=== PATIENT | female | born 1955 | race Caucasian/White ===

== ENCOUNTER 2019-04-27 11:18 | Outpatient (CLI) | payer MEDICARE, BC, SELFPAY ==
--- NOTE | 2019-04-27 11:22 | DI.RAD_ITS ---
SYMPTOMS/DIAGNOSIS: RIGHT KNEE PAIN RIGHT KNEE: The joint spaces are well maintained. There is mild periarticular spurring throughout. No joint effusion is seen. IMPRESSION: Mild degenerative changes.
== END 2019-04-27 11:38 ==
PROVIDERS: Referring Provider Emergency Medicine; Visit Provider Orthopaedic Surgery
DX: M25.561 Pain in right knee (principal); M70.51 Other bursitis of knee, right knee
CPT/HCPCS: 99202; 99203; 73560

== ENCOUNTER 2019-06-21 02:37 | Emergency (ER) | payer MEDICARE, BC, SELFPAY ==
[2019-06-21 02:39] VITALS: BP 126/93; PULSE 98; RESP 18; TEMP 36.7; O2SAT 98
--- NOTE | 2019-06-21 02:46 | ED.GENADUL_ITS ---
Discharge Plan Disposition Patient Disposition: HOME Condition: Good Discharge Details Chief Complaint: RashLesion Clinical Impression: Rash and nonspecific skin eruption, Swelling of body region Primary Care Provider: Aldo Falcon ED Provider: Sam Gunderson [place] Meds and New Rx's Prescriptions: Continued estradiol-norethindrone acet [Activella] 1-0.5 mg Tablet 1 tab PO DAILY RF: 0 Discharge Instructions Additional Instructions: Please keep your appointment with dermatology this morning. You may take another dose of Benadryl orally after 930 this morning if needed. You may take ibuprofen for discomfort after 1030 this morning if needed. You will need outpatient imaging of your kidney to evaluate whether lesions seen on CAT scan. Discuss with primary care when you see him next week. Return to ED for increasing pain, fever, difficulty breathing or swallowing, other concerns. Referrals: [facility] [Provider Group] Aldo Falcon DO [Primary Care Provider] - Medical Decision Making Patient presenting with left shoulder/scapula erythema, swelling, discomfort and itch. While it does not cross the midline there is no definitive vesicular lesions nor does it sound like there ever was that patient or saw. There is significant swelling and edema involving the posterior shoulder scapular region. There is no change in range of motion or pain with range of motion of the neck or shoulder. There is no fever. Differential includes shingles, dermatitis, cellulitis. Biggest unexplainable finding is the amount of swelling and edema present. There is no crepitus. She does not look toxic. She has appointment to see dermatology later this morning. For tonight we will place an IV and check CBC and chemistries. We will try IV Benadryl and if no relief IV morphine. Will obtain CT scan of the soft tissues to evaluate for any evidence of infection. Patient's laboratory studies are unremarkable. Her white count is normal with no shift. Chemistries fine. CT scan suggestive of soft tissue infiltration involving trapezius and subcutaneous tissue. Consideration for myositis versus cellulitis. CK added but with no significant muscle pain or decrease in range of motion doubt myositis. CK came back normal. With no fever or white count patient not feeling ill doubt that this is cellulitis. It may all be localized third spacing due to dermatitis. She is better after IV Benadryl and IV Toradol. We will hold off starting antibiotics or steroids as she has appointment to see dermatology at [facility] in 6 hours. Patient was made aware of need for follow-up imaging of kidney due to question of low cyst versus mass. She has an appointment to see primary care next week. Lab Data Lab results reviewed: Yes I reviewed the patient's lab results. HPI General Mode of arrival: ambulatory . Date/Time Provider Initiated Documentation: 06/21/19 02:45 . Limitations to Documentation: no limitations . Information obtained by: patient and RN notes reviewed . HPI Narrative: Patient presents to ED with left shoulder/back redness, swelling, burning itch that started about a week and a half ago and has become progressively worse. Patient reports that when it first started it seemed to be a small bump in the left scapular region. Over time it became red and itchy. She has been using Benadryl cream and oral Benadryl to help with the itch. There has been a few more bumps but no real vesicles. It has now caused swelling in the shoulder, scapular region. Erythema has spread to the anterior chest and a little up the neck. Benadryl is no longer helping with the burning itch. She denies having fever or chills. She denies pain with range of motion of the shoulder or neck. She actually swam with no difficulty during the day. She has no shortness of breath. She has had no previous reaction like this. She has an appointment to see dermatology at [facility] at 11 AM in the morning. However, because of the discomfort she has been unable to sleep no longer stand the pain and is come in for evaluation. Related Data Home Medications Medication Instructions Recorded Confirmed estradiol-norethindrone acet 1 tab PO DAILY 06/21/19 06/21/19 [Activella] Allergies Allergy/AdvReac Type Severity Reaction Status Date / Time Penicillins Allergy Intermediate Unverified 06/21/19 02:44 General Stated Complaint: RashLesion CAROLE: 3 Review of Systems Review of Systems Narrative: As documented in HPI otherwise negative as below. Const: no fever, chills, weakness Resp: no cough, SOB, pleuritic pain CV: no CP, diaphoresis, edema, syncope GI: no abdominal pain, nausea, vomiting, diarrhea Neuro: no headache, numbness, focal weakness, confusion PFSH Social History Smoking/Tobacco Use Status: Never Alcohol Intake: current Alcohol Intake frequency: 0-2 drinks per day Alcohol type: wine Drug use: Never Substance use type: does not use Do you feel safe at home: Yes Do you feel safe in your relationship?: Yes Exam Narrative Exam Narrative: Vitals: Afebrile. Mild elevation of heart rate and blood pressure. Normal pulse oximetry. Const: WDWN female in NAD. HEENT: NC/AT. Normal facial exam. Eyes: Normal conjunctiva and sclera. Neck: Supple. Trachea midline. Normal ROM. Lungs: Normal respiratory effort. Back: Significant edema of the soft tissue involving the posterior shoulder and scapular area. Neuro: A+O x 3. CN grossly in tact. Good strength and no focal deficit. Ext: No C/C/E. Normal ROM of LUE. Skin: Warm and dry. No crepitus. Erythema involving the left scapular, shoulder, anterior chest and neck area. Does not cross midline. No obvious vesicular lesions. Few areas of raised bumps but not really rash like. Some warmth. Some pain with palpation. Course Vital Signs Vital signs: Vital Signs Temperature 98.1 F 06/21/19 02:39 Pulse 98 H 06/21/19 02:39 Respiratory Rate 18 06/21/19 02:39 Blood Pressure 126/93 H 06/21/19 02:39 Pulse Oximetry 98 06/21/19 02:39 Temperature 98.1 F 06/21/19 02:39 Temperature Source Tympanic 06/21/19 02:39 Pulse 98 H 06/21/19 02:39 Respiratory Rate 18 06/21/19 02:39 Blood Pressure 126/93 H 06/21/19 02:39 Pulse Oximetry 98 06/21/19 02:39 Pain Level 7 06/21/19 02:39
--- NOTE | 2019-06-21 03:09 | DI.CT_ITS ---
EXAM: CT CHEST W CLINICAL HISTORY: swelling, redness, pain left shoulder/scapular. TECHNIQUE: The exam was performed according to the usual protocol. COMPARISON: No exams were available for comparison FINDINGS: There is infiltration of the fat and musculature seen adjacent to the left trapezius extending from a dany the level of the shoulder inferiorly to the level of the mid scapula. Findings are consistent w ith myositis and cellulitis. There is no drainable abscess. No bony destruction is seen. The lungs are clear. The heart size is normal. There is a small lesion at the upper pole of the lef t kidney which may represent a small mass versus hyperdense cyst. A follow-up exam could be consider ed. An incidental liver cyst is seen. The bones are unremarkable. IMPRESSION: Infiltration of the fat and musculature of the left trapezial region consistent with myositis and ce llulitis. No drainable abscess.
[2019-06-21] MEDS: diphenhydrAMINE 50 MG/ML VIAL 25 MG IVP (03:30)
[2019-06-21] MEDS: Omnipaque 350 MG/ML 100 ML BTL IJ (03:36)
[2019-06-21 03:49] LABS: Anion Gap 10.7 mmol/L (3-11); BUN 10 mg/dL (7-18); CO2 25.3 mmol/L (21.0-32.0); CREATININE 0.77 mg/dL (0.55-1.02); Calcium 8.5 mg/dL (8.5-10.1); Chloride 106 mmol/L (98-107); Glucose 100 mg/dL (70-100); Potassium 3.6 mmol/L (3.5-5.1); Sodium 142 mmol/L (136-145)
[2019-06-21 03:54] LABS: Abs Immature Grans 0.02 k/cumm (0.0-0.09); Absolute Basophil Count 0.02 k/cumm (0.0-0.2); Absolute Eosinophil Count 1.54 k/cumm (0.0-0.7); Absolute Lymphocyte Count 2.93 k/cumm (1.2-3.4); Absolute Monocyte Count 0.48 k/cumm (0.11-0.7); Absolute Neutrophil Count 3.34 k/cumm (1.2-6.7); Basophils % 0.2; Eosinophils % 18.5; HCT 44.6 % (36.0-46.0); HGB 15.2 g/dL (12.0-15.5); Immature Grans % 0.2; Lymphocytes % 35.2; Mean Corp. HGB Concentration 34.1 g/dL (32.0-36.0); Mean Corpuscular Hemoglobin 30.6 pg (27.0-33.0); Mean Corpuscular Volume 89.9 fL (80-95); Mean Platelet Volume 9.8 fL (8.0-11.0); Monocytes % 5.8; Neutrophils % 40.1; Platelet Count 301 x1000/uL (130-400); RBC 4.96 m/cumm (4.00-5.20); RBC Distribution Width 14.4 % (11.7-14.6); White Blood Cell Count 8.33 k/cumm (4.4-10.8)
--- NOTE | 2019-06-21 04:09 | DI.VRAD_ITS ---
PROCEDURE INFORMATION: Exam: CT Chest With Contrast Exam date and time: 06/21/2019 3:11 AM Clinical history: 64 years old, female; Other: Swelling, redness, pain left shoulder/scapular; Patient HX: Swelling, redness, pain in left shoulder/scapular region soft tissue TECHNIQUE: Imaging protocol: Computed tomography of the chest with intravenous contrast. Radiation optimization: All CT scans at this facility use at least one of these dose optimization techniques: automated exposure control; mA and/or kV adjustment per patient size (includes targeted exams where dose is matched to clinical indication); or iterative reconstruction. Contrast material: OMNIPAQUE 350; Contrast volume: 70 ml; Contrast route: IV; COMPARISON: No relevant prior studies available. FINDINGS: Lungs: Unremarkable. No consolidation. No masses. Pleural space: Unremarkable. No pneumothorax. No pleural effusion. Heart: Unremarkable. No cardiomegaly. No pericardial effusion. Aorta: Unremarkable. No aortic aneurysm. Lymph nodes: Unremarkable. No enlarged lymph nodes. Liver: 10 mm low-density hepatic lesion possibly indicating cyst. Hepatic steatosis. Kidneys and ureters: 14 mm increased density lesion in the right renal upper pole could indicate high density cyst versus soft tissue mass. Bones/joints: Unremarkable. No acute fracture. Soft tissues: Prominent infiltration of the left and posterior inferior cervical/upper thoracic soft tissue, predominantly involving the trapezius and adjacent fat and could indicate a myositis or cellulitis. IMPRESSION: 1. Prominent infiltration of the left and posterior inferior cervical/upper thoracic soft tissue, predominantly involving the trapezius and adjacent fat and could indicate a myositis or cellulitis. 2. 14 mm increased density lesion in the right renal upper pole could indicate high density cyst versus soft tissue mass. Dictated and Authenticated by: Neri Brown MD. Ordering:PAVEL Vargas MD
[2019-06-21 04:36] LABS: Diff Comment Agrees w/ Instrument; RBC Morphology Normal
[2019-06-21 04:39] LABS: Creatine Kinase 111 U/L (26-192)
[2019-06-21] MEDS: Ketorolac 15 MG/ML VIAL IVP (04:44)
[2019-06-21 05:05] VITALS: BP 126/82; PULSE 82; RESP 14; O2SAT 98
== END 2019-06-21 05:04 | disposition home or self-care (01) ==
LOC: ER 05:11
PROVIDERS: Emergency Provider Emergency Medicine; PCP Emergency Medicine
DX: R21 Rash and other nonspecific skin eruption (principal); R22.32 Localized swelling, mass and lump, left upper limb
CPT/HCPCS: 36415; 80048; 82550; 96361; 96374; 96375; 99285; 71260; 85025; 99284; J1200; J1885; J3490

== ENCOUNTER 2019-07-25 09:54 | Outpatient (REF) | payer MEDICARE, BC, SELFPAY ==
--- NOTE | 2019-07-25 09:30 | PAPFT_PTH ---
PATIENT: Lisseth Neri LOC: [facility] U#:[id number] AGE/SX: 64/F ROOM: RE07/25/[address]: CURT Morris : 1955 BED: DIS: 07/25/2019 SPEC #: [id number] RECD: 07/25/19 12:55 STATUS: RAHEL REQ #: [id number] RICHARD: 07/25/19 09:[address]: Zayda Cuadra DEPT: [facility] Cytology RECD BY: Anca Cruz ENTERED: 07/25/19 12:55 SP TYPE: PAPFT OT DR: Aldo Falcon, Tissues: 1 - CX/ENDOCX FOR PAP SMEARS Procedures: PAP THIN PREP/UVM Screening Comments: [id number]
== END 2019-07-25 10:14 ==
LOC: LBN 09:54
PROVIDERS: PCP Emergency Medicine; Visit Provider Nurse Practitioner Family
DX: Z12.4 Encounter for screening for malignant neoplasm of cervix (principal); Z11.51 Encounter for screening for human papillomavirus (HPV)
CPT/HCPCS: 88142; 87624

== ENCOUNTER 2019-08-12 01:38 | Outpatient (CLI) | payer MEDICARE, BC, SELFPAY ==
--- NOTE | 2019-08-12 11:20 | DI.MAMMO_ITS ---
EXAM: MG MAMMO SCREENING CLINICAL HISTORY: screening TECHNIQUE: Bilateral full field digital CC and MLO mammographic images were obtained with 3D tomosyn thesis and utilizing computer aided detection (CAD). COMPARISON: Available for comparison. FINDINGS: Masses/Architectural Distortion: None seen. Microcalcifications: No suspicious pleomorphic-type are seen. Skin Thickening/Nipple Retraction: None. IMPRESSION: 1. No significant interval change with no specific features of malignancy noted. 2. Unless there is more urgent need, screening mammography is recommended, as per [employer] guidelines. ACR BI-RAD Category- 1 Negative Breast Density - Category D - Extremely dense The mammogram demonstrates the patient's breast tissue is dense. Dense breast tissue is very common a nd is not abnormal but dense breast tissue can make it harder to find cancer on a mammogram. Also, de nse breast tissue may increase their breast cancer risk. This information about the result of the [facility] mogram report was provided to the patient to raise their awareness. Use this report when you speak wi th the patient about their risks for breast cancer, which includes their family history. At that time , you may recommend for more screening tests (Ultrasound or MRI) as they might be useful based on the ir risk. A negative radiographic report should not delay biopsy if a dominant or clinically suspicious mass is present. Up to ten percent of cancers are not identified on mammography. A negative report may reinforce clinical impression. Adenosis and dense breasts may obscure an underlying neoplasm. False positive reports average 6 to 10%. Patient will receive a letter notifying them of these results.
== END 2019-08-12 01:58 ==
PROVIDERS: PCP Emergency Medicine; Visit Provider Nurse Practitioner Family
DX: Z12.31 Encounter for screening mammogram for malignant neoplasm of breast (principal)
CPT/HCPCS: 77063; 77067

== ENCOUNTER 2020-04-09 09:48 | Outpatient (CLI) | payer MEDICARE, BC, SELFPAY ==
[2020-04-11 17:45] LABS: SARS-CoV-2 RNA Undetected (Undetected); SARS-CoV-2 Specimen Source Nasopharynx
== END 2020-04-09 10:08 ==
PROVIDERS: PCP Emergency Medicine; Visit Provider Emergency Medicine
DX: Z20.828 Contact with and (suspected) exposure to other viral communicable diseases (principal)
CPT/HCPCS: U0003

== ENCOUNTER 2020-08-27 00:29 | Outpatient (CLI) | payer MEDICARE, BC, SELFPAY ==
--- NOTE | 2020-08-27 10:30 | DI.MAMMO_ITS ---
EXAM: MG MAMMO SCREENING CLINICAL HISTORY: screening. TECHNIQUE: Bilateral full field digital CC and MLO mammographic images were obtained with 3D tomosyn thesis and utilizing computer aided detection (CAD). COMPARISON: Prior mammograms dating back to 2016, the most recent being July 2019. FINDINGS: The fibroglandular tissue is dense, this decreasing the sensitivity mammogram for finding hidden unde rlying lesions. There are no CAD designations. There are no obvious spiculated masses nor malignant appearing microcalcification groups. There is n o significant architectural distortion nor skin thickening-retraction. IMPRESSION: Dense bilateral fibroglandular tissue. No obvious radiographic evidence of malignancy. BI-RADS Category 1 - Negative Breast Density - Category C - Heterogeneously dense Breast density Category C or D implies that the patient has dense breast tissue. Dense breast tissue can make it harder to find cancer on a mammogram. Dense breast tissue is also associated with an incr eased risk of breast cancer. This information about the result of the mammogram report was provided to the patient to raise their awareness. Use this report when you speak with the patient about their risks for breast cancer, which includes their family history. At that time, you may recommend additional screening tests (Ultrasoun d or MRI) as these tests may add significant information. A negative radiographic report should not delay biopsy if a dominant or clinically suspicious mass is present. Up to ten percent of cancers are not identified on mammography. A negative report may reinforce clinical impression. Adenosis and dense breasts may obscure an underlying neoplasm. False positive reports average 6 to 10%. Patient will receive a letter notifying them of these results.
== END 2020-08-27 00:49 ==
PROVIDERS: PCP Emergency Medicine; Visit Provider Nurse Practitioner Family
DX: Z12.31 Encounter for screening mammogram for malignant neoplasm of breast (principal)
CPT/HCPCS: 77063; 77067

== ENCOUNTER 2021-08-22 19:55 | Outpatient (REF) | payer MEDICARE, BC, SELFPAY ==
[2021-08-22 18:44] LABS: Calculated LDL 49 mg/dL (<100); Cholesterol 164 mg/dL (<200); HDL Cholesterol 108 mg/dL (40-60); Triglyceride 36 mg/dL (<150)
== END 2021-08-22 19:56 | disposition home or self-care (01) ==
LOC: LBN 19:55
PROVIDERS: PCP Emergency Medicine; Visit Provider Emergency Medicine
DX: N95.1 Menopausal and female climacteric states (principal); D04.9 Carcinoma in situ of skin, unspecified
CPT/HCPCS: 80061

== ENCOUNTER → 2021-09-17 00:56 | Outpatient (CLI) | payer MEDICARE, BC, SELFPAY ==
--- NOTE | 2021-09-17 12:23 | DI.MAMMO_ITS ---
Exam(s) MAMMO SCREENING EXAM: MAMMO SCREENING CLINICAL HISTORY: screening TECHNIQUE: Bilateral full field digital CC and MLO mammographic images were obtained with 3D tomosyn thesis and utilizing computer aided detection (CAD). COMPARISON: Available for comparison. FINDINGS: Masses/Architectural Distortion: None seen. Microcalcifications: No suspicious pleomorphic-type are seen. Skin Thickening/Nipple Retraction: None. IMPRESSION: 1. No significant interval change with no specific features of malignancy noted. 2. Unless there is more urgent need, screening mammography is recommended, as per [employer] guidelines. BI-RADS Category 1 - Negative Breast Density - Category C - Heterogeneously dense Breast density category C or D implies that the patient has dense breast tissue. Dense breast tissue is very common and is not abnormal but dense breast tissue can make it harder to find cancer on a ma mmogram. Also, dense breast tissue may increase their breast cancer risk. This information about the result of the mammogram report was provided to the patient to raise their awareness. Use this report when you speak with the patient about their risks for breast cancer, which includes their family hist ory. At that time, you may recommend for more screening tests (Ultrasound or MRI) as they might be us eful based on their risk. A negative radiographic report should not delay biopsy if a dominant or clinically suspicious mass is present. Up to ten percent of cancers are not identified on mammography. A negative report may reinforce clinical impression. Adenosis and dense breasts may obscure an underlying neoplasm. False positive reports average 6 to 10%. Patient will receive a letter notifying them of these results.
== END ==
PROVIDERS: PCP Emergency Medicine; Visit Provider Nurse Practitioner Family
DX: Z12.31 Encounter for screening mammogram for malignant neoplasm of breast (principal)
CPT/HCPCS: 77063; 77067

== ENCOUNTER → 2022-03-13 09:39 | Outpatient (BNVA) | payer MEDICARE, BC, SELFPAY | PROVIDERS: PCP Family Medicine; Referring Provider Family Medicine; Visit Provider Surgery | DX: N63.10 Unspecified lump in the right breast, unspecified quadrant (principal) | CPT/HCPCS: 99202; 99213 ==

== ENCOUNTER → 2022-03-20 01:34 | Outpatient (CLI) | payer MEDICARE, BC, SELFPAY ==
--- NOTE | 2022-03-20 09:10 | DI.MAMMO_ITS ---
Exam(s) MG MAMMO DIAGNOSTIC UNI US BREAST RT COMPLETE EXAM: MG MAMMO DIAGNOSTIC UNI -RIGHT AND COMPLETE RIGHT BREAST ULTRASOUND CLINICAL HISTORY: rapid onset R breast redness, palpable rt mass,n63.10. TECHNIQUE: Unilateral CC AND MLO MAMMOGRAPHIC images were obtained with 3D tomosynthesis technique a nd utilizing computer aided detection (CAD). COMPLETE right breast ultrasound was performed including all 4 quadrants as well as the retroareolar region and right axilla. COMPARISON: Prior mammograms were reviewed, the most recent being SEPTEMBER 2021. This patient recently experience unilateral right breast redness while in [place]. This has subse quent completely resolved. She presently does not feel a lump. FINDINGS: DIAGNOSTIC RIGHT BREAST MAMMOGRAM: Fibroglandular tissue is again noted dense. No new masses nor mal ignant-appearing microcalcification groups in the right breast. No new architectural distortion or s kin thickening-retraction. COMPLETE RIGHT BREAST ULTRASOUND: There is a solitary finding which is at the 3 o'clock position. This has the appearance of a 4 ale meter wider than taller microcyst. No solid lesions nor worrisome areas of decreased through transmi ssion all 4 quadrants. No significant focal findings in the retroareolar region no. No dilated duct s. No ipsilateral axillary adenopathy. IMPRESSION: No radiographic evidence of malignancy in the right breast. Solitary 4 millimeter microcysts at 3 o'clock position seen on ultrasound. Appropriate follow-up is repeat breast imaging if her previous symptoms return. Findings and recommendations were discussed by myself with the patient today. The patient was informed of the findings and follow-up recommendations prior to leaving the [facility] today. BI-RADS Category 2 - Benign Findings Breast Density - Category C - Heterogeneously dense Breast density Category C or D implies that the patient has dense breast tissue. Dense breast tissue can make it harder to find cancer on a mammogram. Dense breast tissue is also associated with an incr eased risk of breast cancer. This information about the result of the mammogram report was provided to the patient to raise their awareness. Use this report when you speak with the patient about their risks for breast cancer, which includes their family history. At that time, you may recommend additional screening tests (Ultrasoun d or MRI) as these tests may add significant information. A negative radiographic report should not delay biopsy if a dominant or clinically suspicious mass is present. Up to ten percent of cancers are not identified on mammography. A negative report may reinforce clinical impression. Adenosis and dense breasts may obscure an underlying neoplasm. False positive reports average 6 to 10%. Patient will receive a letter notifying them of these results.
== END ==
PROVIDERS: PCP Family Medicine; Visit Provider Obstetrics & Gynecology Gynecology
DX: N63.10 Unspecified lump in the right breast, unspecified quadrant (principal); R92.8 Other abnormal and inconclusive findings on diagnostic imaging of breast; N60.01 Solitary cyst of right breast; R92.2 Inconclusive mammogram
CPT/HCPCS: 76642; 77061; 77065; G0279

== ENCOUNTER → 2023-09-02 02:30 | Outpatient (CLI) | payer MEDICARE, BC, SELFPAY ==
--- NOTE | 2023-09-02 15:15 | DI.MAMMO_ITS ---
Exam(s) MAMMO SCREENING EXAM: MAMMO SCREENING CLINICAL HISTORY: screening. TECHNIQUE: Bilateral full field digital CC and MLO mammographic images were obtained with 3D tomosyn thesis and utilizing computer aided detection (CAD). COMPARISON: Prior mammograms were reviewed. Prior ultrasound March 2022 also reviewed. FINDINGS: Fibroglandular tissue pattern is again noted be moderately dense, this somewhat decreasing the sensit ivity of the mammogram for finding hidden underlying lesions. There are no obvious new spiculated masses nor malignant appearing microcalcification groups. There is no significant architectural distortion nor skin thickening-retraction. IMPRESSION: No radiographic evidence of malignancy. BI-RADS Category 1 - Negative Breast Density - Category C - Heterogeneously dense Breast density Category C or D implies that the patient has dense breast tissue. Dense breast tissue can make it harder to find cancer on a mammogram. Dense breast tissue is also associated with an incr eased risk of breast cancer. This information about the result of the mammogram report was provided to the patient to raise their awareness. Use this report when you speak with the patient about their risks for breast cancer, which includes their family history. At that time, you may recommend additional screening tests (Ultrasoun d or MRI) as these tests may add significant information. A negative radiographic report should not delay biopsy if a dominant or clinically suspicious mass is present. Up to ten percent of cancers are not identified on mammography. A negative report may reinforce clinical impression. Adenosis and dense breasts may obscure an underlying neoplasm. False positive reports average 6 to 10%. Patient will receive a letter notifying them of these results.
== END ==
PROVIDERS: PCP Family Medicine; Visit Provider Obstetrics & Gynecology
DX: Z12.31 Encounter for screening mammogram for malignant neoplasm of breast (principal)
CPT/HCPCS: 77063; 77067

== ENCOUNTER 2024-10-13 02:49 | Outpatient (CLI) | payer MEDICARE, BC, SELFPAY ==
--- NOTE | 2024-10-13 07:30 | DI.DEXA_ITS ---
Exam(s) XR DEXA BONE DENSITY W/WO SUDEEP EXAM: XR DEXA BONE DENSITY W/WO SUDEEP CLINICAL HISTORY: Screening,menopausal disorder,n95.9 TECHNIQUE: COMPARISON: No exams were available for comparison FINDINGS: Lateral Spine Image: Unremarkable. No compression deformities identified. Left hip: Total T-Score: -0.4 Total Z-Score: 1.2 T- and Z-scores: Within normal limits. Lumbar Spine: Total T-Score: -0.7 Total Z-Score: 1.5 T- and Z-scores: Within normal limits. IMPRESSION: No evidence of osteoporosis.
--- NOTE | 2024-10-13 07:30 | DI.MAMMO_ITS ---
Exam(s) MAMMO SCREENING EXAM: MAMMO SCREENING CLINICAL HISTORY: screening,z12.39 TECHNIQUE: Bilateral full field digital CC and MLO mammographic images were obtained with 3D tomosyn thesis and utilizing computer aided detection (CAD). COMPARISON: Available for comparison. FINDINGS: Masses/Architectural Distortion: None seen. Microcalcifications: No suspicious pleomorphic-type are seen. Skin Thickening/Nipple Retraction: None. IMPRESSION: 1. No significant interval change with no specific features of malignancy noted. 2. Unless there is more urgent need, screening mammography is recommended, as per [employer] guidelines. BI-RADS Category 1 - Negative Breast Density - Category C - Heterogeneously dense Breast density category C or D implies that the patient has dense breast tissue. Dense breast tissue is very common and is not abnormal but dense breast tissue can make it harder to find cancer on a ma mmogram. Also, dense breast tissue may increase their breast cancer risk. This information about the result of the mammogram report was provided to the patient to raise their awareness. Use this report when you speak with the patient about their risks for breast cancer, which includes their family hist ory. At that time, you may recommend for more screening tests (Ultrasound or MRI) as they might be us eful based on their risk. A negative radiographic report should not delay biopsy if a dominant or clinically suspicious mass is present. Up to ten percent of cancers are not identified on mammography. A negative report may reinforce clinical impression. Adenosis and dense breasts may obscure an underlying neoplasm. False positive reports average 6 to 10%. Patient will receive a letter notifying them of these results.
== END 2024-10-13 03:09 ==
LOC: DI 02:49
PROVIDERS: PCP Family Medicine; Visit Provider Family Medicine
DX: Z12.31 Encounter for screening mammogram for malignant neoplasm of breast (principal); N95.9 Unspecified menopausal and perimenopausal disorder; Z13.820 Encounter for screening for osteoporosis
CPT/HCPCS: 77063; 77067; 77080

== ENCOUNTER → 2024-11-03 10:03 | Outpatient (BNVA) | payer MEDICARE, BC, SELFPAY | PROVIDERS: PCP Family Medicine; Referring Provider Family Medicine; Visit Provider Physical Therapy Assistant | DX: Z12.11 Encounter for screening for malignant neoplasm of colon (principal); Z86.0100 Personal history of colon polyps, unspecified ==

== ENCOUNTER 2024-11-22 09:42 | Day surgery (SDC) | payer MEDICARE, BC, SELFPAY ==
[2024-11-22 10:34] VITALS: BP 118/74; PULSE 75; RESP 18; TEMP 36.6; O2SAT 100
[2024-11-22] MEDS: Lactated Ringers 1,000 ML 80 ML IV (11:00)
--- NOTE | 2024-11-22 12:23 | W.ANESPRE ---
General Info Date of Service Date Performed: 11/22/24 Height: 5 ft 5 in Weight: 57.6 kg Body Mass Index (BMI): 21.1 Surgical Procedure: Operation Date: 11/22/24 11:05 Proposed Procedure Side Surgeon vilma Randle MD Meds Allergies and Home Medications Allergies Allergy/AdvReac Type Severity Reaction Status Date / Time Penicillins AdvReac Intermediate Rash Verified 11/22/24 10:36 Home Medication ?Medication ?Instructions ?Recorded cholecalciferol (vitamin D3) 10 10 mcg PO DAILY 09/10/22 mcg (400 unit) capsule cyanocobalamin (vitamin B-12) 1,000 mcg PO DAILY 09/26/24 1,000 mcg capsule estradiol-norethindrone acet 1 1 tab PO DAILY #84 tabs 09/26/24 mg-0.5 mg tablet (Activella) bisacodyl 5 mg tablet,delayed 5 mg PO ONCE #4 tabs 11/03/24 release (Dulcolax (bisacodyl)) polyethylene glycol 3350 17 17 g PO ONCE #238 grams 11/03/24 gram/dose oral powder ibuprofen-diphenhydramine citrate 1 cap PO ONCE 11/22/24 200 mg-38 mg tablet (Advil PM) niacinamide 500 mg tablet 500 mg PO BID 11/22/24 Current Visit Medications: Current Medications Generic Name Dose Route Start Last Admin Trade Name Freq PRN Reason Stop Dose Admin Ringer's Solution 1,000 mls @ 80 mls/hr 11/22/24 06:00 11/22/24 11:00 IV 11/22/24 23:59 80 mls/hr INFUSION ESTHER Administration IV Miscellaneous Supplies 1 each 11/22/24 06:00 Iv Access IV 11/22/24 23:59 DIRECTED ESTHER Sodium Chloride 0 ml 11/22/24 06:00 Normal Saline Flush 10 Ml Syr IV 11/22/24 23:59 PRN PRN Sodium Chloride 0 ml 11/22/24 06:00 Normal Saline 10 Ml Vial IJ 11/22/24 23:59 DIRECTED PRN Sterile Water 0 ml 11/22/24 06:00 Water,Injection,Sterile 10 Ml Vial IJ 11/22/24 23:59 DIRECTED PRN PFSH Active Problems Active Problems: Problem Status Onset Code Post-menopause on HRT (hormone replacement therapy) Acute Z79.890 Medical History Medical History Hx of colonic polyps (2019) pt report, no path available. Basal cell carcinoma (BCC) in situ of skin multiple Varicose veins of lower extremity ablation RLE Rhytides Pes anserinus bursitis of right knee Surgical History Surgical History Hx of colonoscopy Tobacco Smoking/Tobacco Use Status: Never Passive smoking exposure: No Second hand exposure: Yes Alcohol Alcohol Intake: current Alcohol intake frequency: a few times a week Alcohol type: wine Substance Use Substance use: Never Substance use type: does not use Details: alcohol: t-2, 1.5 glasses Prental History History 3 Para 3 Hx # Term Pregnancies Multiple births Hx # Pregnancies Ectopic pregnancies AB induced Hx Number of Living Children AB spontaneous Vital Signs and Lab Results Vital Signs Most Recent Vital Signs in EMR: Most Recent Vital Signs Temp Pulse Resp BP Pulse Ox 36.6 C 75 18 118/74 100 11/22/24 10:34 11/22/24 10:34 11/22/24 10:34 11/22/24 10:34 11/22/24 10:34 Lab Results Blood Type / Crossmatch: No Data to Display Complete Blood Count: No Data to Display Complete Metabolic Panel: No Data to Display Liver Function Panel: No Data to Display Coagulation Panel: No Data to Display Cardiac Panel: No Data to Display Arterial Blood Gas: No Data to Display Venous Blood Gas: No Data to Display Pancreas Panel: No Data to Display Thyroid Panel: No Data to Display Infectious Disease: No Data to Display Blood Cultures: No Data to Display Toxicology Panel: No Data to Display Anesthesia Assessment and Plan Anesthesia History Personal History: No History of Anesthesia Complications Family History: No Family History of Anesthesia Complications Exercise Tolerance Exercise Tolerance: Metabolic Equivalents>4 Pertinent Negatives Pertinent Negatives: No Symptoms of GERD Cardiac & Pulmonary Exam Cardiac Exam: Normal S1/S2 Heart Sounds Pulmonary Exam: Clear Bilateral Breath Sounds Implantable Cardiac Device Does patient have a Pacemaker or an ICD?: No Airway Exam Known Difficult Airway: No Mallampati Class: 2 Mouth Opening: Normal (> 3cm) Thyromental Distance: Greater than 3 cm Neck Range of Motion: Full ROM Neck Circumference: Normal Teeth Condition: Normal Dentition ASA Classification ASA Score: ASA 2 Emergency Case?: No NPO Status NPO Status: NPO Clears >2 hours, Solids >8 hours Anesthesia Plan Resuscitation Status: Full Code Anesthesia Technique: General Anesthesia Airway Planned: Natural Airway Monitors Used: Standard Monitors
[2024-11-22 12:24] VITALS: BMI 21.1
--- NOTE | 2024-11-22 13:10 | BOWEL_PTH ---
PATIENT: Lisseth Neri LOC: [facility] U#:[id number] AGE/SX: 69/F ROOM: RE11/22/[address]: Hi Randle : 1955 BED: DIS: 11/22/2024 SPEC #: [id number] RECD: 11/22/24 17:41 STATUS: RAHEL RE #: [id number] RICHARD: 11/22/24 13:[address]: Hi Randle DEPT: Surgical Specimen RECD BY: Anca Cruz ENTERED: 11/22/24 17:41 SP TYPE: Bowel OTHR DR: Lisseth Jefferson Tissues: 1 - BIOPSY BOWEL Procedures: GROSS AND MICRO LEVEL 4 Comments: [id number]
[2024-11-22 13:21] VITALS: BP 104/67; PULSE 81; RESP 16; TEMP 36.3; O2SAT 98
--- NOTE | 2024-11-22 13:37 | W.ANESPOSTOP ---
Postoperative Evaluation Date, Time and Location Date Performed: 11/22/24 Time Performed: 13:37 Patient Location: Day Surgery Unit Vital Signs Most Recent Imported Vital Signs: Most Recent Vital Signs Temp Pulse Resp BP Pulse Ox 36.3 C L 81 16 104/67 98 11/22/24 13:21 11/22/24 13:21 11/22/24 13:21 11/22/24 13:21 11/22/24 13:21 Pain Score Most Recent Pain Score: Most Recent Pain Score Pain Level 0 11/22/24 13:21 Assessment Mental Status: Awake (Alert & Oriented to Patient Baseline) Airway and Respiratory Function: Patent airway with normal (patient baseline) respiratory exam Cardiovascular Function: Hemodynamically Stable Hydration Status: Adequately Hydrated Nausea & Vomiting: No Nausea or Vomiting Pain: Pt. Denies Any Pain Peripheral Nerve Block: Patient did not receive a nerve block
--- NOTE | 2024-11-22 13:57 | COLE_ITS ---
Date of service: 11/22/24 Time of Service: 13:57 Colonoscopy Report Procedure Description: Procedures: 1. Colonoscopy 2. Cold forceps polypectomy Pre-op Diagnosis: Surveillance colonoscopy, colon polyps Post-op Diagnosis: Colon polyp, pandiverticulosis Surgeon: Hasmukh Randle Assist: None Anesthesia: Anesthesia monitoring Indication: Asymptomatic surveillance exam with no significant family history. Personal history of polyps. Findings: The terminal ileum was normal. A small 2-3 mm sessile polyp was removed with cold forceps technique. There are pandiverticular changes in various locations throughout the entire colon but overall mild. No active inflammation, stricture or fibrosis. No significant hemorrhoid disease. Complications: None EBL: Minimal Surveillance recommendations: 3-10 years. Assuming polyp is benign histology, then a 10-year repeat would be acceptable. If sessile serrated or tubulovillous histology then repeat in 3 years. Specimens removed: Yes Grafts or implants: None Prep: Excellent Procedure in detail: Written consent was obtained from the patient who was in agreement with the risks, the benefits and the indications for the procedure. The patient was taken to the endoscopy suite and laid in the left lateral decubi tus position with knees bent. We performed a timeout. When we were all in agreement anesthesia was administered and we began the procedure. Visual and digital perianal/rectal exam was performed. This was within normal limits. The colonoscope was introduced and passed without difficulty all the way to the cecum. The appendiceal orifice and ileocecal valve were identified. The terminal ileum was briefly intubated and appeared normal. The scope was then slowly pulled back, carefully inspecting all of the colonic mucosa and recesses. Retroflexion was performed in the rectum. There were pathological findings and/or interventions as noted above. The colonoscope was then removed, the patient tolerated the procedure well and was then taken to the PACU in hemodynamically stable condition.
[2024-11-22 14:00] VITALS: BP 120/76; PULSE 77; RESP 16; TEMP 36.2; O2SAT 96
== END 2024-11-22 14:35 | disposition home or self-care (01) ==
PROVIDERS: PCP Family Medicine; Visit Provider Student in an Organized Health Care Education/Training Program
PROC: 0DJD8ZZ Inspection of Lower Intestinal Tract, Via Natural or Artificial Opening Endoscopic (ICD-10-PCS; CPT 45378; principal; 2024-11-22 11:00)
DX: Z12.11 Encounter for screening for malignant neoplasm of colon (principal); K57.51 Diverticulosis of both small and large intestine without perforation or abscess with bleeding; K63.5 Polyp of colon; Z86.0100 Personal history of colon polyps, unspecified
CPT/HCPCS: 45380; 88305; J2003; J2704

== ENCOUNTER 2024-12-02 15:23 | Emergency (ER) | payer MEDICARE, BC, SELFPAY ==
[2024-12-02 15:49] VITALS: BP 153/122; PULSE 79; RESP 16; TEMP 37.1; O2SAT 98
--- NOTE | 2024-12-02 16:00 | DI.RAD_ITS ---
Exam(s) XR SHOULDER RT COMPLETE 2+V EXAM: XR SHOULDER RT COMPLETE 2+V CLINICAL HISTORY: fall; R shoulder pain. TECHNIQUE: 2D digital imaging was performed of the right shoulder. Five images were obtained. AP, Grashey, Y-view and axillary views were obtained. COMPARISON: No exams were available for comparison FINDINGS: BONES: No acute fracture is present. No bony destructive lesion is seen. JOINTS: No dislocation present. There are degenerative changes seen at both the glenohumeral and acro mioclavicular joint. SOFT TISSUE: Normal. IMPRESSION: No acute fracture or dislocation. DATA REPOSITORY: RADIATION DOSE DELIVERED:
--- NOTE | 2024-12-02 16:09 | W.ED.GENAD ---
Discharge Plan Disposition Patient Disposition: Home Condition: Stable Discharge Details Clinical Impression: Rotator cuff arthropathy of right shoulder Primary Care Provider: Lisseth Jefferson ED Provider: Gonzalo Mccrary Home Meds and New Rx's Prescriptions: No Action cyanocobalamin (vitamin B-12) 1,000 mcg capsule 1,000 mcg PO DAILY estradiol-norethindrone acet [Activella] 1-0.5 mg tablet 1 tab PO DAILY Qty: 84 4RF cholecalciferol (vitamin D3) 10 mcg (400 unit) capsule 10 mcg PO DAILY niacinamide 500 mg tablet 500 mg PO BID Advil PM 200-38 mg tablet 1 cap PO ONCE Rx Instructions: administer at bedtime Discharge Instructions Instructions: Shoulder Pain ED Additional Instructions: You were seen in the emergency department for your possible rotator cuff injury of your right shoulder, there is no acute fracture on your x-ray. Please use therapeutic dosing of Tylenol (acetamenophen) & Advil (ibuprofen) in an alternating fashion as follows: Take 1000mg of Tylenol every 6 hours without missing doses- that is 4 times per day. Detention in between the Tylenol dosings, take 400-600mg of Advil also on a 6 hour schedule, that is also 4 times per day. The daily maximum dosing of Tylenol is 4000mg, and the daily maximum dosing of Advil is 2400mg. This is safe to do for weeks. Please note that some common cold medications & prescription pain medications may contain acetamenophen and you need to read OTC drug labels and factor that in to maximum daily dosings. I have placed you on a follow-up list for orthopedics, you may use the sling for comfort throughout the day but you need to remove the sling very often and perform many pendulum exercises throughout the day to prevent frozen shoulder. Referrals: [facility] [Provider Group] Lisseth Jefferson MD [Primary Care Provider] - Discharge Data Discharge Date/Time-TO BE ENTERED AT DEPARTURE: 12/02/24 18:06 HPI General Date/Time Provider Initiated Documentation: 12/02/24 16:02. HPI Narrative: 69 year-old female presents to ED today by POV/ambulating with a chief complaint of R shoulder pain after a fall in the [place] while [place] her dogs with onset today. Quality described as R upper arm pain, no radiation to complete numbness, collar-bone pain, headstrike, neck pain, endorses difficulty ranging her arm- did do an arm-workout today. Severity is described as moderate. Palliating factors include nothing specific attempted. Provoking factors include nothing specific. Events leading up to the incident/Associated Symptoms: Patient denies surgical history to R arm, is R-hand dominant. Patient not anticoagulated. Related Data Home Medications ?Medication ?Instructions ?Recorded ?Confirmed cholecalciferol (vitamin D3) 10 10 mcg PO DAILY 09/10/22 12/02/24 mcg (400 unit) capsule cyanocobalamin (vitamin B-12) 1,000 mcg PO DAILY 09/26/24 12/02/24 1,000 mcg capsule estradiol-norethindrone acet 1 1 tab PO DAILY #84 tabs 09/26/24 12/02/24 mg-0.5 mg tablet (Activella) ibuprofen-diphenhydramine citrate 1 cap PO ONCE 11/22/24 12/02/24 200 mg-38 mg tablet (Advil PM) niacinamide 500 mg tablet 500 mg PO BID 11/22/24 12/02/24 Previous Rx's ?Medication ?Instructions ?Recorded estradiol-norethindrone acet 1 1 tab PO DAILY #84 tabs 09/26/24 mg-0.5 mg tablet (Activella) Allergies Allergy/AdvReac Type Severity Reaction Status Date / Time Penicillins AdvReac Intermediate Rash Verified 12/02/24 15:52 General Stated Complaint: Orthopedic CAROLE: 4 Review of Systems All systems reviewed & are unremarkable except as noted in HPI and below Exam Narrative Exam Narrative: GENERAL APPEARANCE: Well-nourished, non-toxic, awake and alert, atraumatic, no acute distress. SKIN: Warm, pink, dry, intact, without rashes/lesions/ulcerations. HEAD: Normocephalic, atraumatic, normal hair distribution for gender/age. EYES: Normal conjunctiva, no exudates on lids/lashes. ENT: Nares patent, no circumoral cyanosis, no facial swelling NECK: Supple, trachea midline, painless cervical ROM. LUNGS/CHEST: Non-labored respirations, normal A/P diameter, symmetrical expansion, no chest wall deformity HEART (CV/PV): Regular rate, no peripheral edema, no JVD. ABDOMEN: Soft, non-distended, no guarding. MSK: Normal ROM, no swelling/deformity to bilateral UEs or LEs, moving all extremities without weakness, no cyanosis, spine midline without tenderness, normal curvature - R UE: Right radial pulse 2+, sprayer hand strength 5/5, sensation intact in the hand, able to move the arm without issue at the elbow, difficulty with shoulder shrug, tenderness around the deltoid insertion, clavicle stable, humerus stable, suspect rotator cuff arthropathy based on patient's limited range of motion in the shoulder, special test not performed due to patient's pain level NEURO: Mental Status AAOx4 - alert to person, place, time, events No facial droop, no forehead involvement. Motor: No focal weakness - strength 5/5 in bilateral UEs and LEs, proximal and distal, symmetric. Sensory: sensation intact to light touch globally. Gait normal: patient ambulated without ataxia into ED room. PSYCH: euthymic, cooperative, pleasant, appropriate speech Course Vital Signs Vital signs: Vital Signs Temperature 37.1 C 12/02/24 15:49 Pulse 79 12/02/24 15:49 Respiratory Rate 16 12/02/24 15:49 Blood Pressure 153/122 H 12/02/24 15:49 Pulse Oximetry 98 12/02/24 15:49 Temperature 37.1 C 12/02/24 15:49 Temperature Source Oral 12/02/24 15:49 Pulse 79 12/02/24 15:49 Respiratory Rate 16 12/02/24 15:49 Blood Pressure 153/122 H 12/02/24 15:49 Blood Pressure Position Sitting 12/02/24 15:49 Pulse Oximetry 98 12/02/24 15:49 Oxygen Delivery Method Room Air 12/02/24 15:49 Oxygen Flow Rate 0 12/02/24 15:49 Pain Level 4 12/02/24 15:49 Medical Decision Making This dictation utilizes [id number] dictation software and may contain unedited grammatical errors. 69 year-old female presents to ED today by POV/ambulating with a chief complaint of R shoulder pain after a fall in the [place] while walking her dogs with onset today. Quality described as R upper arm pain, no radiation to complete numbness, collar-bone pain, headstrike, neck pain, endorses difficulty ranging her arm- did do an arm-workout today. Severity is described as moderate. Palliating factors include nothing specific attempted. Provoking factors include nothing specific. Events leading up to the incident/Associated Symptoms: Patient denies surgical history to R arm, is R-hand dominant. Patients' medical history: Negative, otherwise healthy. Family and social history: Noncontributory, exercises regularly. Pertinent exam findings / vital signs include shoulder pain at deltoid insertion, limited range of motion to pain, neurovascularly intact in right hand, right radial pulse 2+, special tests of the shoulder not performed due to patient's pain level. Differential / pathologies of concern include fracture, contusion, sprain/strain, rotator cuff tear. Diagnostic studies of: -X-ray R shoulder-no acute fracture seen. Interventions of: -Provided sling for very short-term relief of pain during ADLs but stressed removing it for pendulum exercises, recommend RICE therapy, therapeutic dosing of Tylenol and ibuprofen, placed on orthopedic follow-up list. ED Course/Assessment/Plan: 69-year-old female otherwise healthy had a fall in the [place] today injuring her right upper arm, she is right-hand dominant, I do suspect rotator cuff arthropathy based on the patient's limited range of motion to pain especially with raising her shoulder and arm, special test of the shoulder not performed due to patient's pain level, and recommend she perform adequate RICE therapy and therapeutic dosing of Tylenol and ibuprofen and follow-up with orthopedics, x-ray negative for fracture. Findings not consistent with fracture, neurovascular compromise. Disposition of rotator cuff arthropathy of right shoulder. Patient verbalized understanding of the plan and return to ED criteria and engaged in shared decision making. Medical Records Medical records reviewed: Yes I reviewed the patient's medical records. Imaging Data Radiologic Study: Attestation: I personally reviewed and interpreted this imaging study as follows: Imaging: X-Ray Radiologist's impression: EXAM: XR SHOULDER RT COMPLETE 2+V CLINICAL HISTORY: fall; R shoulder pain. TECHNIQUE: 2D digital imaging was performed of the right shoulder. Five images were obtained. AP, Grashey, Y-view and axillary views were obtained. COMPARISON: No exams were available for comparison FINDINGS: BONES: No acute fracture is present. No bony destructive lesion is seen. JOINTS: No dislocation present. There are degenerative changes seen at both the glenohumeral and acromioclavicular joint. SOFT TISSUE: Normal. IMPRESSION: No acute fracture or dislocation. Quality:SDOH Health Related Social Needs: No Data to Display PFSH All Active Problems (Updated 12/02/24 @ 17:40 by MUNDO Santos) Rotator cuff arthropathy of right shoulder (Acute) Post-menopause on HRT (hormone replacement therapy) (Acute) Medical History (Updated 12/02/24 @ 17:40 by MUNDO Santos) Hx of colonic polyps (2019) pt report, no path available. Basal cell carcinoma (BCC) in situ of skin multiple Varicose veins of lower extremity ablation RLE Rhytides Pes anserinus bursitis of right knee Surgical History (Updated 11/28/24 @ 09:53 by Nikki Francis) Hx of colonoscopy (~11/2024) Family History Father , age 87 Stroke at 88 Skin cancer Heart disease Maternal Grandmother , age 94 Breast cancer Mother , age 91 No problems noted. Sister No problems noted. Sister No problems noted. Sister Diabetes Heart disease Hyperlipidemia Brother No problems noted. Brother Alcohol abuse Asthma Son Skin cancer Daughter No problems noted. Daughter No problems noted. Paternal Grandfather , age 57 Alcohol abuse Maternal Grandmother , age 92 Breast cancer Paternal Grandmother , age 83 No problems noted. Social History Smoking/Tobacco Use Status: Never Second Hand Exposure: Yes Smoking risk assessment performed?: Yes Alcohol Intake: current Alcohol Intake frequency: a few times a week Alcohol type: wine Drug use: Never Substance use type: does not use Details: alcohol: t-2, 1.5 glasses Caregiver/Support person: No Household members: spouse Housing: house Number of Children: 3 Communication Needs: None Education Level: college Do you need help understanding health information?: Never current occupation: Retired CPA Pets and animals: Yes Pets and animals: dog(s) Sexually active: No Do you think of yourself as: straight/heterosexual Current gender identity: female What is your relationship status?: How often do you talk on the phone with friends or family?: three or more times per week How often do you get together with friends or relatives?: twice per week How often do you attend gnosticism or samaritan services?: 1-3 times per year Do you belong to any clubs or organized social groups?: no Panel score (0-1 are the most socially isolated patients): 2 What type of physical activity do you participate in: walking, bicycling and weight lifting Duration: 45-60 minutes/day Frequency: daily [place]/Holiness: Tenriism Special charlotte needs: No Seatbelt use: always Helmet use: Yes Helmet use: always Drive intox or ride w/intox mixer driver: No Do you feel safe at home: Yes Do you feel safe in your relationship?: Yes Victim of physical abuse: No Victim of emotional abuse: No Victim of sexual abuse: No Would you like helpful sources: No History History 3 Para 3 Hx # Term Pregnancies Multiple births Hx # Pregnancies Ectopic pregnancies AB induced Hx Number of Living Children AB spontaneous
[2024-12-02] MEDS: Ketorolac 10 MG TAB PO (16:19)
[2024-12-02] MEDS: Acetaminophen 500 MG TAB 1000 MG PO (16:19)
== END 2024-12-02 18:06 | disposition home or self-care (01) ==
PROVIDERS: Emergency Provider Physician Assistant; PCP Family Medicine
DX: M12.811 Other specific arthropathies, not elsewhere classified, right shoulder (principal); W19.XXXA Unspecified fall, initial encounter; Y93.K1 Activity, walking an animal
CPT/HCPCS: 99283; 73030

== ENCOUNTER → 2024-12-21 09:10 | Outpatient (BNVA) | payer MEDICARE, BC, SELFPAY | PROVIDERS: PCP Family Medicine; Referring Provider Family Medicine; Visit Provider Student in an Organized Health Care Education/Training Program | DX: M75.101 Unspecified rotator cuff tear or rupture of right shoulder, not specified as traumatic (principal); W19.XXXA Unspecified fall, initial encounter | CPT/HCPCS: 99213; 99214 ==

== ENCOUNTER 2025-01-11 00:42 | Outpatient (CLI) | payer MEDICARE, BC, SELFPAY ==
--- NOTE | 2025-01-11 06:15 | DI.MRI_ITS ---
Exam(s) MR UPPER JOINT RT WO EXAM: MR UPPER JOINT RT WO CLINICAL HISTORY: R SHOULDER PAIN,rt rotator cuff tear,rt rotator cuff arthropathy. TECHNIQUE: Multiplanar multisequence MRI was performed. COMPARISON: Plain films 02 December 2024 FINDINGS: BONES: There is no fracture or contusion pattern. JOINTS:The acromioclavicular joint is shows mild inferior spurring. There is a moderate sized glenohumeral joint effusion. The humeral head is superiorly positioned wit h relationship to the glenoid, articulating with the undersurface of the acromion. TENDONS: Supraspinatus: Full-thickness tear with retraction to the level of the glenoid. Infraspinatus: Full-thickness tear with retraction to the level of the glenoid. Subscapularis: Unremarkable. Teres Minor: Unremarkable. Biceps and [place]: Unremarkable. MUSCLES: Mild supraspinatus and infraspinatus atrophy. I some edema within the infraspinatus muscle. GLENOID LABRUM: Unremarkable on this noncontrast examination. SOFT TISSUES: Unremarkable. BURSAE: Subacromial and subdeltoid bursae . IMPRESSION: Full-thickness tears with retraction of the supraspinatus and infraspinatus tendons. Joint effusion. DATA REPOSITORY:
== END 2025-01-11 01:02 ==
LOC: DI 00:43
PROVIDERS: PCP Family Medicine; Visit Provider Student in an Organized Health Care Education/Training Program
DX: M12.811 Other specific arthropathies, not elsewhere classified, right shoulder; M75.122 Complete rotator cuff tear or rupture of left shoulder, not specified as traumatic
CPT/HCPCS: 73221

== ENCOUNTER → 2025-01-18 13:21 | Outpatient (BNVA) | payer MEDICARE, BC, SELFPAY | PROVIDERS: PCP Family Medicine; Referring Provider Family Medicine; Visit Provider Student in an Organized Health Care Education/Training Program | DX: M75.101 Unspecified rotator cuff tear or rupture of right shoulder, not specified as traumatic (principal); M12.811 Other specific arthropathies, not elsewhere classified, right shoulder | CPT/HCPCS: 99214 ==